=== PATIENT | male | born 1945 | race Caucasian/White ===

== ENCOUNTER 2022-11-21 10:23 | Outpatient (CLI) | payer MEDICARE, SELFPAY ==
--- NOTE | ~2022-11-21 | PE_ITS ---
EXAMINATION: PET skull to mid thigh DATE: 11/21/2022 12:50 INDICATION: Abnormal CT with pulmonary nodule TECHNIQUE: Blood glucose level was 97 mg/dL. 10.173 mCi of 18-fluorodeoxyglucose (18-FDG) was adminis tered i.v. Low dose computed tomography (CT) images were acquired from the base of the brain to the p roximal thighs for attenuation correction and anatomic localization. Positron emission tomography (PE T) images were acquired in the same distribution beginning 54 minutes after injection. Images includi ng fused PET/CT images were reconstructed in axial, coronal, and sagittal planes. Automated exposure control technique was employed. The dose-length product was 484.21mGy-cm. COMPARISON: None FINDINGS: Head/neck: There is symmetric increased activity in the oral cavity, palatine tonsils, parotid glands, submandi bular glands, laryngeal muscles and ocular muscles without CT correlate, likely physiologic. No patho logically enlarged cervical lymphadenopathy or suspicious foci of increased FDG uptake in the visuali zed head or neck. Chest: 1.6 x 1.3 cm spiculated nodule in the anterobasilar segment of the left lower lobe with mild increase d FDG uptake with maximal SUV of 5.9. Additional smaller and slightly more cephalad FDG avid nodule i n the anterior basilar segment of the left lower lobe with maximal SUV of 3.9 and measuring approxima tely 9 mm . Both nodules are in relatively close proximity to the left heart border with cardiac samson on artifact affecting the smaller more cephalad nodule. There is a small posterior layering left pleu ral effusion. Linear band of likely atelectasis with mild associated FDG uptake with maximal SUV of 4 .0 along side the pleural effusion in the posterior left lower lobe. There is a linear region of incr eased uptake with maximal SUV of 5.2 along the caudal aspect of the left posterior sulcus suspicious for pleural-based metastatic disease. Remainder of the lungs are clear. Heart size is normal. No jose cardial or right pleural effusion. Thoracic aorta is normal in caliber. No pathologically enlarged or abnormally FDG avid thoracic lymphadenopathy. Abdomen/pelvis/proximal thighs: Physiologic renal accumulation and excretion of FDG activity in the kidneys, bladder and along portio ns of ureters. Normal degree and heterogenous pattern of increased uptake throughout the liver withou t radiologic correlate or dominant FDG avid lesion. The gallbladder, pancreas, spleen and right adren al gland are normal. 9 mm left adrenal nodule with mild increased FDG uptake with maximal SUV of 3.4. Mild uptake scattered throughout the bowels without radiologic correlate, also likely physiologic. N o other abnormal foci of increased FDG uptake or pathologically enlarged lymphadenopathy in the abdom en, pelvis or proximal thighs. Musculoskeletal: 8 mm lytic lesion in the L4 vertebral body with prominent increased FDG uptake with maximal SUV of 15 .7. Chronic appearing compression fractures with mild anterior wedging at T12 and L1. There is mild i ncreased uptake at the right side of the T12 vertebral body with maximal SUV of 3.7 which is without radiologic correlate. Less intense heterogeneous mild FDG uptake diffusely throughout the spine and t o lesser degree in the pelvis, also without radiologic correlate. Increased uptake overlying the bila teral greater trochanters, left greater than right, without radiologic correlate most likely related to either trochanteric bursitis and/or gluteus medias tendinopathy. IMPRESSION: 1. Increased FDG uptake associated with a 1.6 x 1.3 cm spiculated nodule in the left lower lobe patricia rning for primary bronchogenic carcinoma. Increased FDG uptake with a smaller infrahilar nodule left lower lobe and increased FDG uptake at the posterior sulcus suspicious for metastatic disease. Both o f these nodules in close proximity to the left heart border which w
[2022-11-21 11:00] LABS: Glucose Point of Care 97 mg/dl (65-105)
== END 2022-11-21 10:24 | disposition home or self-care (01) ==
PROVIDERS: PCP Internal Medicine; Visit Provider Internal Medicine
DX: R91.1 Solitary pulmonary nodule (principal); R93.89 Abnormal findings on diagnostic imaging of other specified body structures
CPT/HCPCS: 78815; A9552

== ENCOUNTER 2022-11-24 03:17 | Outpatient (CLI) | payer MEDICARE, SELFPAY ==
[2022-11-23 08:33] VITALS: BMI 20.1
--- NOTE | 2022-11-23 08:34 | PC.NURSE ---
Pre Radiology instructions Report to the outpatient [facility] on date 11/24/22 AT 11:00AM_ Procedure Time: __1:00PM__ YOU MAY BE MONITORED AT HOSPITAL FOR UP TO 4 HOURS AFTER YOUR PROCEDURE. A visitors will be allowed to accompany the patient into the hospital. ?The visitor will be instructed to remain with patient at all times or leave the building due to restrictions.? We will allow the visitor to come back to the postoperative area when patient is ready.? NO children visitors allowed at this time. You and your visitor will be asked to self-screen and do not enter if you have any COVID symptoms. A mask is OPTIONAL within the hospital. Patients are to have no food or drink 6 hours prior to procedure time Driving will be restricted after the procedure, you must have a person to drive you home. Labs will be drawn in preop area and once reviewed, you will be taken to radiology area for procedure. When the procedure is completed, you will be taken to outpatient where you will be monitored for several hours. You may have one visitor in this area. Other than holding anti-coagulants, patient may take other medication(s) as scheduled. Prior to your appointment date patients are instructed to hold anti-coagulants after discussing with ordering provider to stop. If unable to discontinue anti-coagulants please notify radiologist. ? No aspirin or warfarin (Coumadin) for 7 days prior to the procedure. ? No clopidogrel (Plavix), ticagrelor (Brilinta), prasugrel (Effient) or dabigatran (Pradaxa) for 5 days prior to the procedure. ? No rivaroxaban (Xarelto), apixaban (Eliquis), dipyridamole (Aggrenox or Persantine) or cilostazol (Pletal) for 2 days prior to the procedure. Medications to discontinue per physician: __NONE Date to take last dose: Please leave all valuables, including medications, at home the day of procedure. The hospital will not accept responsibility for valuables. Wear comfortable, loose fitting clothing.? Follow any additional instructions given to you from ordering provider. Telephone instructions given to __PATIENT AND WIFE___and asked if any additional questions and then verbalized understanding. Patient advised to call scheduling provider office or registration scheduling [phone] if any additional questions.
[2022-11-24] VITALS (8 sets, daily range): BP systolic 101–132; BP diastolic 61–84; PULSE 71–86; RESP 12–16; TEMP 36.6; O2SAT 99–100
--- NOTE | ~2022-11-24 | US_ITS ---
EXAMINATION: US thoracentesis DATE: 11/24/2022 14:34 INDICATION: Left pleural effusion TECHNIQUE: The procedure and its risks and benefits were discussed with the patient. Potential risks discussed included bleeding, infection, and pneumothorax. The patient understood the risks and agreed to proceed. The skin was prepped and draped in sterile fashion. 1% lidocaine was used for local anes thesia. Under ultrasound guidance, a 5 Fr catheter with trochar was advanced into the left pleural ef fusion. Fluid was aspirated. The catheter was removed, and a dressing was applied. There were no imme diate complications. FINDINGS: Ultrasound images demonstrate a small left pleural effusion and the catheter within the fluid. The pl eura in the region of the posterior sulcus was also reviewed to assess for any potential biopsy of nilay th pleural implants to account for the increased FDG activity in this region. No pleural implants wer e identified although portions of the sulcus were obscured by the caudal-most ribs. Should the thorac entesis prove nondiagnostic, would recommend further evaluation with CT-guided percutaneous lung biop sy of the lingular nodule. IMPRESSION: 1. Successful ultrasound-guided thoracentesis yielding 100 mL of cloudy michelle-colored fluid. Reviewed, dictated and finalized at location A. TMENT MAINTENANCE IMPRESSION: 1. Successful ultrasound-guided thoracentesis yielding 100 mL of cloudy michelle- colored fluid.
--- NOTE | ~2022-11-24 | XR_ITS ---
EXAMINATION: [id number] DATE: 11/24/2022 14:05 INDICATION: Status post left thoracentesis TECHNIQUE: frontal view of the chest was obtained. COMPARISON: PET/CT dated 11/21/2022 FINDINGS: Mild opacities at the left lung base, likely combination of trace residual left pleural effusion, ate lectasis and the FDG avid lingular nodule identified on prior PET which is concerning for malignancy. Right lung remains clear. No pneumothorax or right-sided pleural effusion. The cardiomediastinal john houette is normal. Minimal S-shaped curvature of the thoracic spine. IMPRESSION: 1. Opacities at the left lung base likely combination of trace residual left pleural effusion, atelec tasis and the FDG avid lingular nodule identified on prior PET concerning for primary bronchogenic ca rcinoma. Reviewed, dictated and finalized at location A. [employer] IMPRESSION: 1. Opacities at the left lung base likely combination of trace residual left pl eural effusion, atelectasis and the FDG avid lingular nodule identified on prio r PET concerning for primary bronchogenic carcinoma.
[2022-11-24 12:23] LABS: Mean Platelet Volume 8.8 fl (7.4-10.4); Platelet Count Result 281 k/mm3 (150-375)
[2022-11-24 12:36] LABS: INR 1.1; Prothrombin Time 13.4 Seconds (11.1-14.7)
== END 2022-11-24 16:15 | disposition home or self-care (01) ==
PROVIDERS: PCP Internal Medicine; Visit Provider Radiology Diagnostic Radiology
DX: C34.92 Malignant neoplasm of unspecified part of left bronchus or lung (principal); C78.2 Secondary malignant neoplasm of pleura
CPT/HCPCS: 32555; 36415; 81210; 81235; 81275; 81276; 85049; 85610; 87070; 87075; 87102; 87205; 87206; 88108; 88271; 88274; 88275; 88305; 88342; 88360; 88381